=== PATIENT | female | born 1980 | race Caucasian/White ===

== ENCOUNTER 2017-01-15 20:25 | Emergency (ER) | payer BC ==
[2017-01-15 20:48] LABS: Urine Bilirubin Negative (NEGATIVE); Urine Ketone Negative (NEGATIVE); Urine Nitrite Negative (NEGATIVE); Urine Protein Negative (NEGATIVE); Urine Specific Gravity 1.015 SP.GR. (1.005-1.010); Urine Urobilinogen Normal (NORMAL)
[2017-01-15 20:49] LABS: Hematocrit 39.7 % (37.0-47.0); Hemoglobin 13.8 gm/dL (12.5-16.0); Mean Cell Volume 86.5 fl (78-100); Mean Corpuscular Hemoglobin 30.1 pg (27-31); Mean Corpuscular Hgb Conc 34.8 g/dl (32-36); Mean Platelet Volume 10.3 fl (6.0-9.5); Neutrophil # 10.1 K/mm3 (1.3-6.0); Neutrophil % 69.3 % (42-75.0); Platelet Count 321 K/mm3 (150-450); Red Blood Count 4.59 M/mm3 (4.2-5.4); Red Cell Distribution Width 14.6 % (11.5-14.0); White Blood Count 14.6 K/mm3 (4.0-10.5)
[2017-01-15] MEDS ORDERED: KETOROLAC TROMETHAMINE 30 MG/ML VIAL IV ONE (20:55)
[2017-01-15] MEDS ORDERED: ONDANSETRON HCL/PF 2 MG/ML VIAL IV ONE (20:55)
--- NOTE | 2017-01-15 20:56 | ERNOTE ---
<Jojo Woody - Last Filed: 01/15/17 21:54> Abdominal HPI - Narrative Date of Service: 01/15/17 - General Chief Complaint: Abdominal Pain Time Seen by Provider: 01/15/17 20:45 Source: patient, family, RN notes reviewed Exam Limitations: no limitations - Immun/Allergies/Home Medications Immunizatons: IMMUNIZATION HX Immunizations Up to Date Yes History of Influenza Vaccine Yes Hx Pneumococcal Vaccination No Allergies/Adverse Reactions: Allergies duloxetine HCl [From Cymbalta] Allergy (Verified 01/15/17 20:34) Hives Home Medications: HOME MEDICATIONS Metoprolol Succinate [Toprol Xl] 25 mg PO BID 08/29/12 [Last Taken 01/05/15 05: 00] Atorvastatin Calcium 10 mg PO DAILY 01/04/15 [Last Taken 01/05/15 05:00] PARoxetine HCL [Paxil] 20 mg PO BID 01/04/15 [Last Taken 01/05/15 05:00] Thyroid,Pork [[place] Thyroid] 180 mg PO BID 01/04/15 [Last Taken 01/05/15 05:00] metFORMIN HCL [Glucophage Xr] 1,000 mg PO BID 01/04/15 [Last Taken 01/05/15 05: 00] Cyclobenzaprine HCl [Flexeril] 10 mg PO DAILY 01/05/15 [Last Taken 01/05/15 05: 00] ALPRAZolam [Xanax] 0.25 mg PO TID PRN #0 01/10/15 [Last Taken Unknown] Ibuprofen [Motrin] 800 mg PO QID PRN #0 01/10/15 [Last Taken Unknown] Diphenoxylate HCl/Atrop Sulf [Lomotil] 2.5 mg PO QID PRN #40 tab 10/19/15 [Last Taken Unknown] Liraglutide [Victoza 2-Timmy] 1.8 mg SQ 04/16/16 [Last Taken Unknown] Ondansetron [Zofran Odt] 4 mg PO Q4H PRN #10 tab 04/16/16 [Last Taken Unknown] metroNIDAZOLE [Flagyl] 500 mg PO Q8H #30 tablet 04/16/16 [Last Taken Unknown] - History of Present Illness Narrative: 36 y/o female ambulatory to the ED for abdominal pain that began 4 days ago. The pain was initially in her left lower quadrant, but tonight it became much worse and now spreads all across her lower abdomen. She also reports nausea, but denies vomiting. She has chronic diarrhea and normally has 6 or 7 stools per day. She has an extremely large hernia in her right lower quadrant. This occurred after her hysterectomy and subsequent infection 5 years ago. She is having pain in the hernia, but reports that it is not larger or more indurated than usual. She also reports having a history of diverticulosis. Date (Duration): 01/11/17 Timing: getting worse Quality: severe, aching Activities at Onset: none Prior Abdominal Problems: Present: other Prior Treatment: Absent: recently seen Review of Systems - Review of Systems Constitutional: Absent: recent illness, fever, chills EYE: Present: no symptoms reported ENT: Present: no symptoms reported Respiratory: Absent: shortness of breath, cough Cardiology: Absent: chest pain, palpitations Gastrointestinal/Abdominal: Present: nausea, diarrhea, abdominal pain. Absent: vomiting Genitourinary: Absent: frequency, dysuria, hematuria Musculoskeletal: Absent: back pain, muscle pain Skin: Absent: rash, lesions, change in color Neurological: Absent: headache, dizziness/light-headedness Endocrine: Present: no symptoms reported Hematologic/Lymphatic: Present: no symptoms reported Psych: Present: no symptoms reported - Patient's Past Medical History Patient History - Medical: Anemia, Anxiety, Arthritis, Diabetes Type 2, Depression, Hypothyroidism, UTI'S, Other Patient History - Cardiac/Respiratory: No pertinent hx Patient History - Cancer: Ovarian, Other Patient History - Surgical Procedures: Cancer Surgery, , Hysterectomy, Tubal Ligation Patient History - Other: None LMP (females 10-50): s/p hysterectomy - Family History Mother Family History - Medical: Diabetes Type 2, Depression, Hypothyroidism Family History - Cardiac/Respiratory: COPD, Hypertension, Hyperlipidemia Father Family History - Medical: Depression, Other Brother Family History - Medical: Grandmother-Maternal Family History - Medical: Other Family History - Cardiac/Respiratory: Hypertension, Hyperlipidemia, Myocardial Infarction - Social History Living Situations: spouse Abuse History: No History of abuse Psych History: Hx of Anxiety, Hx of Depression Smoking Status: Never smoker Alcohol Use: none Drug Use: none - Immunizations Immunizations Up to Date: Yes Hx Pneumococcal Vaccination: No History of Influenza Vaccine: Yes Physical Exam - Physical Exam General Appearance: Present: wd/wn, alert, mild distress, obese Head Exam: Present: normal inspection Eye Exam: Normal inspection: bilateral Respiratory: Present: no respiratory distress, normal breath sounds, no accessory muscle use, lungs clear Cardiovascular/Chest: Present: regular rate, rhythm, no murmur, normal peripheral pulses Gastrointestinal/Abdominal: Present: normal bowel sounds, soft, tenderness - mild in LLQ, severe RLQ, distended - Obese, guarding, hernia - Large incisional hernia RLQ - soft but tender with palpation Back Exam: Present: normal inspection, no CVA tenderness Extremity Exam: Present: normal inspection, normal range of motion, no edema Neurological Exam: Present: alert, oriented, normal mood/affect, no motor/ sensory deficits Skin Exam: Present: normal color, warm/dry ED Progress - Results and Orders Patient's Lab Results:: I have reviewed the patient's lab results. - Vital Signs Patient's Vital Signs:: I have reviewed the patient's vital signs. Vital Signs: Vital Signs 01/15/17 20:30 Temperature 37.6 C H Pulse Rate 95 Respiratory 17 Rate Blood Pressure 136/90 O2 Sat by Pulse 97 Oximetry - X-Ray X-Ray #1 X-Ray: abdomen Interpretation: Interp. by me X-ray Comments: Very little gas or stool present, a few air fluid levels - Progress/Reassessment Chief Complaint: Abdominal Pain Progress:: Unchanged - Transfer of Care Physician Sign Out: Jojo Woody Receiving Physician: Rao Dhillon Pending Results: CT/MRI results Departure - Departure Clinical Impression: Ovarian cyst rupture Abdominal pain Qualifiers: Abdominal location: lower abdomen, unspecified Qualified Code(s): R10.30 - Lower abdominal pain, unspecified Disposition: Home Follow Up Needed Condition: Good Instructions: Ovarian Cyst, Cacc-hn-Ccay Additional Instructions: Take your CT on disc when you see your oncologist and Discuss current CT result and any further testing they may want to do. See your regular doctor or return to ER if you have pain not controlled by ibuprofen or aleve. Referrals: Jacquelyn Masters, [employer] [Primary Care Provider] - <Rao Dhillon - Last Filed: 01/16/17 02:36> Abdominal HPI - Immun/Allergies/Home Medications Immunizatons: IMMUNIZATION HX Immunizations Up to Date Yes History of Influenza Vaccine Yes Hx Pneumococcal Vaccination No ED Progress - Vital Signs Vital Signs: Vital Signs 01/15/17 01/15/17 01/16/17 20:30 21:56 00:37 Temperature 37.6 C H 36.7 C 37.2 C Pulse Rate 95 84 86 Respiratory 17 18 18 Rate Blood Pressure 136/90 124/79 123/74 O2 Sat by Pulse 97 97 97 Oximetry - CT/Ultrasound CT/Ultrasound Narrative: CT abd/ pelvis Severe hepatomegaly large ventral hernia containing bowel loops including cecum and terminal iluem without thickening or distention no evidence of appendicitis 6.4 cm multilocular mas left adnexa probably high riding left ovary with multiple cysts. mild surrounding stranding. May be functional ovarian cysts with rupture but cannot exclude infectious or malignant process - Progress/Reassessment Progress Note-Subjective: 01/16/17 01:[address] and pain control with patient. Pt would prefer OTC medication for pain control.
[2017-01-15 21:01] LABS: Urine Appearance Clear; Urine Bacteria 1+; Urine Blood 5 /ul (NEGATIVE); Urine Color Yellow; Urine RBC None Seen /hpf (0-5); Urine WBC 0-5 /hpf (0-5)
[2017-01-15 21:04] LABS: Albumin * 3.4 gm/dl (3.4-5.0); Anion Gap 11.8 mmol/L (6.8-13.8); BUN/Creatinine Ratio 11.6 (9.0-21.6); Bilirubin, Total 0.4 mg/dL (0.0-1.1); Ca. Corrected For Albumin 8.9 mg/dL (8.4-10.2); Calcium * 8.7 mg/dL (7.9-10.9); Carbon Dioxide 29.9 mmol/L (24-32.6); Potassium 3.7 mmol/L (3.4-4.6); Total Protein 7.4 gm/dL (6.2-8.2)
[2017-01-15] MEDS ORDERED: ONDANSETRON HCL/PF 2 MG/ML VIAL ONE ×2 (21:11→21:12)
[2017-01-15] MEDS ORDERED: KETOROLAC TROMETHAMINE 30 MG/ML VIAL ONE (21:11)
[2017-01-15] MEDS ORDERED: DIATRIZOATE MEGLUMINE, SODIUM 30 ML BTL ONE (21:50)
[2017-01-15] MEDS ORDERED: DIATRIZOATE MEGLUMINE, SODIUM 30 ML BTL PO ONE (21:52)
[2017-01-16 03:06] VITALS: BP 126/78
== END 2017-01-16 01:35 | disposition home or self-care (01) ==
LOC: ER 20:25
DX: N83.209 Unspecified ovarian cyst, unspecified side (principal); R10.30 Lower abdominal pain, unspecified; Z85.43 Personal history of malignant neoplasm of ovary; Z87.440 Personal history of urinary (tract) infections
CPT/HCPCS: 36415; 74020; 74177; 80053; 81001; 85025; 96374; 96375; 99284; J2405